=== PATIENT | female | born 1985 | race Caucasian/White ===

== ENCOUNTER 2018-03-22 10:40 | Emergency (ER) | payer OTHER ==
[2018-03-22 10:54] VITALS: BP 150/71
--- NOTE | 2018-03-22 11:47 | ED Physician Documentation ---
History of Present Illness - Stated complaint Stated Complaint: ALLERGIC REACTION - Chief complaint Chief Complaint: Resp PD PAST MEDICAL HISTORY - Past Medical History Past Medical History: No - Past Surgical History Past Surgical History: No - Present Medications Home Medications: Ambulatory Orders Medication Instructions Recorded Confirmed EPINEPHrine [Epinephrine] 0.3 mg IJ 03/22/18 Loratadine [Claritin] 10 mg PO 03/22/18 diphenhydrAMINE [Benadryl] 03/22/18 - Allergies Allergies/Adverse Reactions: Allergies Allergy/AdvReac Type Severity Reaction Status Date / Time No Known Drug Allergies Allergy Verified 03/22/18 10:49 - Social History Does the pt smoke?: No Smoking Status: Never smoker Does the pt drink ETOH?: No Does the pt have substance abuse?: No - Immunizations Immunizations are current?: Yes - POLST Patient has POLST: No Results - Vitals Vitals: Vital Signs - 24 hr 03/22/18 10:46 Temperature 36.4 C L Heart Rate 63 Respiratory 16 Rate Blood Pressure 150/71 H O2 Saturation 100 Oxygen O2 Source Room air PD MEDICAL DECISION MAKING - ED course ED course: I was in fast track seeing all 4 patients there one by one and pt was next to be seen - but LWBS less than 1 hr after arrival I did not get a chance to assess her exam documented by nursing triage states no wheezing and she had VS and her RR and O2 sat were fine and she was triaged to level 4 and placed in fast track so presume not in anaphylaxis per NN pt has her own epi pen - Sepsis Event Vital Signs: Vital Signs - 24 hr 03/22/18 10:46 Temperature 36.4 C L Heart Rate 63 Respiratory 16 Rate Blood Pressure 150/71 H O2 Saturation 100 Oxygen O2 Source Room air Departure - Departure Disposition: ED Left Without Being Seen Discharge Date/Time: 03/22/18 11:39
== END 2018-03-22 11:39 | disposition left against medical advice (07) ==
LOC: EDBD 10:40 → ED 10:40
DX: Z53.21 Procedure and treatment not carried out due to patient leaving prior to being seen by health care provider (principal)
CPT/HCPCS: 99281

== ENCOUNTER 2018-04-02 07:44 | Outpatient (CLI) | payer OTHER ==
--- NOTE | 2018-04-02 14:52 | MRI Report ---
Procedure Date: 04/02/2018 Accession Number: [id number] / [id number] Procedure: MRI - Shoulder RT W/O CPT Code: FULL RESULT: EXAM: RIGHT SHOULDER MRI WITHOUT CONTRAST EXAM DATE: 04/02/2018 08:41 AM. CLINICAL HISTORY: Impingement syndrome. COMPARISON: None. TECHNIQUE: Multiplanar, multisequence T1-weighted and fluid-sensitive sequences of the shoulder without contrast. Other: None. FINDINGS: Acromioclavicular Region: The acromion is type II. The acromioclavicular joint is unremarkable. The coracoacromial and coracoclavicular ligaments are intact. A mild amount of fluid is in the subacromial/subdeltoid bursa. Glenohumeral Region: No subluxation. No effusion or loose bodies. The articular cartilage is unremarkable. The glenohumeral ligaments and joint capsule are unremarkable. Bone Marrow: No fracture, marrow edema or bone lesions. Labrum: The labrum is unremarkable on this nonarthrographic study. Musculature/Rotator Cuff: The subscapularis, supraspinatus, infraspinatus, and teres minor tendons are intact. No edema or fatty atrophy. Biceps Tendon: The long head of the biceps tendon and biceps jil are intact. Other: The subcutaneous tissues are unremarkable. IMPRESSION: Mild subacromial/subdeltoid bursitis. [facility] MUSCULOSKELETAL RADIOLOGY SECTION
== END 2018-04-02 07:45 | disposition home or self-care (01) ==
LOC: DI 07:44
PROVIDERS: ATTEND Physician Assistant
DX: M75.41 Impingement syndrome of right shoulder (principal); M75.51 Bursitis of right shoulder

== ENCOUNTER 2021-09-01 07:25 | Outpatient (CLI) | payer OTHER ==
--- NOTE | 2021-09-01 10:39 | MRI Report ---
PROCEDURE: Hand LT W/O INDICATIONS: RETAINED FOREIGN BODY FRAGMENTS TECHNIQUE: Noncontrast coronal T1 spin echo and T2 fast spin echo with fat saturation, axial proton density fast spin echo and T2 fast spin echo with fat saturation, sagittal T1 spin echo and STIR through the hand and fingers. COMPARISON: None. FINDINGS: Image quality: There is inhomogeneous fat saturation slightly limiting evaluation. The distal phalang es of the second through fourth digits are also incompletely included on the current study. Bones: No bone marrow contusions or fractures. No discrete cortical bony erosions. No suspicious intr aosseous lesions. Interphalangeal joints: The collateral ligaments appear intact. The volar plates also appear intact. The extensor central slips appear intact on sagittal images. Metacarpophalangeal joints: The collateral ligaments appear intact, as well as the volar plate and a djacent deep transverse metacarpal ligaments. The sagittal bands of the extensor barr appear preserv ed. Extensor apparatus: The central slips insert normally on the middle phalangeal base. The conjoint a nd terminal tendons insert normally on the distal phalangeal bases. More proximal portions of the ex tensor tendons also appear normal. Flexor apparatus: The flexor digitorum superficialis and profundus tendons appear intact where visua lized. The visualized annular and cruciform pulleys also appear grossly intact. Soft tissues: There is a small region of subcutaneous edema subjacent to the cutaneous marker along the volar aspect of the third digit at the base of the third proximal phalanx. No loculated thick-wal led fluid collection to suggest an abscess. There is a linear region of adjacent subcutaneous edema t racking in the ulnar direction towards the region of the fourth proximal phalanx. A small linear adolfo on of T2 hypointensity measuring up to 1.6 cm is demonstrated within this tract of edema suggestive o f a foreign body. There is mild adjacent peritendinous edema along the flexor tendons of the third an d fourth digits. Visualized muscles demonstrate normal bulk and internal signal. No intramuscular masses identified. No ganglion cysts. IMPRESSION: 1. Suspected small linear foreign body demonstrated within the volar soft tissues between the bases o f the third and fourth proximal phalanges. There is associated subcutaneous edema without a discrete abscess collection. Reviewed by: Lennox Zabala MD on 09/01/2021 9:37 AM [place] Approved by: Lennox Zabala MD on 09/01/2021 9:37 AM [facility] Station ID: [id number]
== END 2021-09-01 07:26 | disposition home or self-care (01) ==
LOC: DI 07:25
PROVIDERS: ATTEND Orthopaedic Surgery
DX: M79.5 Residual foreign body in soft tissue (principal); R60.0 Localized edema